=== PATIENT | female | born 1940 | race Caucasian/White ===

== ENCOUNTER 2018-05-29 08:18 | Inpatient (IN) ==
[2018-05-29] MEDS ORDERED: Mupirocin 2% Nasal Oint Topical Syringe EACH NARE SCH (09:00)
[2018-05-29] MEDS ORDERED: Sodium Chlor 0.9% Inj 500 ML IV.CONT ONE (09:00)
[2018-05-29] MEDS ORDERED: Chlorhexidine Gluconate 2% 1 Pack (2 Cloths) TOPICAL SCH (09:00)
[2018-05-29] MEDS ORDERED: ceFAZolin 2 GM Premix Inj 2 GM/50 ML PIGGYBACK IV.SIG SCH (09:00)
[2018-05-29] MEDS ORDERED: Aspirin 325 MG Tablet PO SCH (09:00)
[2018-05-29] MEDS ORDERED: Chlorhexidine Gluconate 2% 1 Pack (2 Cloths) TOPICAL ONE (09:00)
[2018-05-29] MEDS ORDERED: Metoprolol Tartrate 25 MG Tablet PO ONE (09:00)
[2018-05-29] MEDS ORDERED: Protamine Sulfate Inj 50 MG/5 ML Vial ONE (09:38)
[2018-05-29] MEDS ORDERED: Heparin 10,000 UNITS/10 ML Vial (for IV use) ONE (09:38)
--- NOTE | 2018-05-29 10:40 | P.HPCA ---
History of Present Illness Service: Cardiology Primary Care Physician: AISHWARYA MOHAMUD Chief Complaint: Aortic stenosis History of Present Illness: This is a 77-year-old female with past medical history of ventricular arrhythmia and implantable cardioverter defibrillator who is now had progressive symptoms of exertional dyspnea and fatigue. Patient was evaluated by cardiothoracic surgery secondary to diagnosis of severe aortic valve stenosis. Patient was seen and evaluated by Dr. Moreno Delaney interventional cardiology. Due to increased surgical risk, patient was referred for consideration of transcatheter to valve replacement. Patient is now here for elective procedure. Inpatient Certification: I certify that the inpatient services were ordered in accordance with Medicare regulations governing the order. This includes certification that hospital inpatient services are reasonable and necessary and in the case of services not specified as inpatient-only under 42 CFR 419.22(n), that they are appropriately provided as inpatient services in accordance to with the 2-midnight benchmark under 43 CFR 412.3(e) Estimated Total Length of Stay (Days): 2 Plans for Post Hospital Care: Home Review of Systems All other systems reviewed negative except as stated in HPI [facility] - History History Provided By: Patient - Medical History Medical History: Medical History (Last Updated 05/29/18 @ 09:00 by Hawa Viveros) Afib Aortic regurgitation CAD (coronary artery disease) CVA (cerebral vascular accident) HLD (hyperlipidemia) HTN (hypertension) History of cardiac pacemaker Hx of hysterectomy Hypothyroid Left atrial enlargement Lupus (systemic lupus erythematosus) Myocardial infarct, old SOB (shortness of breath) - Surgical History Surgical History: Surgical History (Last Updated 05/29/18 @ 09:00 by Hawa Viveros) Stented coronary artery AICD (automatic cardioverter/defibrillator) present History of open reduction and internal fixation (ORIF) procedure Hx of cardiac catheterization Hx of cataract removal with insertion of prosthetic lens Hx of prior ablation treatment - Tobacco History Second Hand Smoke Exposure: No Smoking Status: Former smoker - Alcohol History How Often Do You Have a Drink Containing Alcohol: Never Medications and Allergies Active Medications: Active Medications Aspirin (Aspirin) 325 mg PO RN [facility] Stop: 06/01/18 08:57 Last Admin: 05/29/18 09:09 Dose: 325 mg Chlorhexidine Gluconate (Chlorhexidine 2% Cloth) 3 pack TOPICAL RN [facility] Stop: 06/01/18 08:57 Cefazolin Sodium/Dextrose (Ancef 2 Gm Premix Inj) 2 gm in 50 mls @ 100 mls/hr IV.SIG ONCE [facility] Stop: 06/01/18 08:57 Sodium Chloride (Ns Inj) 1,000 mls @ 125 mls/hr IV.CONT .Q8H [facility] Lactated Ringer's (Lr 1000 Ml Inj) 1,000 mls @ 30 mls/hr IV.CONT .Q24H ONE Stop: 05/30/18 08:59 Sodium Chloride (Ns Inj) 500 mls @ 30 mls/hr IV.CONT .[id number] ONE Stop: 05/30/18 01:39 Mupirocin (Bactroban 2% Nasal Oint) 1 applicatio EACH NARE RN [facility] Stop: 06/01/18 08:57 Povidone Iodine (Betadine 5% Antisepsis Kit) 1 applicatio TOPICAL RN [facility] Stop: 06/01/18 08:57 Allergies Allergy/AdvReac Type Severity Reaction Status Date / Time ibuprofen Allergy Severe Nausea/Vomi Verified 05/29/18 09:00 ting levothyroxine AdvReac Mild hair loss Verified 05/29/18 09:00 levothyroxine sodium AdvReac Mild hair loss Verified 05/29/18 09:00 Home Medications Medication Instructions Recorded Confirmed Type amiodarone 200 mg PO DAILY 05/21/18 05/28/18 History aspirin 81 mg PO DAILY 05/21/18 05/29/18 History atorvastatin 80 mg PO DAILY 05/21/18 05/28/18 History cholecalciferol (vitamin D3) 5,000 unit PO DAILY 05/21/18 05/28/18 History [Vitamin D3] diphenhydramine-acetaminophen 2 tab PO HS 05/21/18 05/28/18 History [Tylenol PM Extra Strength] furosemide 20 mg PO TID 05/21/18 05/29/18 History potassium chloride [Klor-Con M10] 10 meq PO DAILY 05/21/18 05/28/18 History thyroid (pork) [Shock Thyroid] 90 mg PO DAILY 05/21/18 05/28/18 History docusate sodium [Stool Softener] 200 mg PO HS 05/28/18 05/28/18 History Exam Vital signs: Vital Signs 05/29/18 08:57 Pulse Rate 70 Respiratory Rate 16 Blood Pressure 146/75 H Pulse Oximetry 99 Intake & Output 05/28/18 05/29/18 05/29/18 18:59 06:59 18:59 Weight 80.1 kg Other: Weight On Admission 80.1 kg - Constitutional no acute distress - Routine HEENT Exam Eye: Present: EOMI, PERRL ENT: Present: mucous membranes moist - Routine Neck Exam Absent: JVD - Routine Respiratory Exam Present: CTA bilaterally - Routine Cardiovascular Exam Present: RRR, murmur - Routine Abdominal Exam Present: soft, normoactive bowel sounds - Routine Extremities Exam Absent: edema - Routine Neurological Exam Present: alert, oriented X3, CN II-XII intact. Absent: sensory deficit, motor deficit Results Intake and Output 05/28/18 05/29/18 05/29/18 22:59 06:59 14:59 Other: Weight 80.1 kg Weight On Admission 80.1 kg Patient Weight 05/30/18 06:59 Weight 80.1 kg EKG interpretations - Dysrhythmias Sinus rhythms and dysrhythmias: sinus rhythm - Blocks, axis, hypertrophy, ST abn AV and intraventricular conduction: right bundle branch block (fixed/ intermittent, complete/incomplete) Caprini VTE Risk Assessment Caprini VTE Risk Assessment: Moderate/High Risk (score >= 2) Caprini Risk Assessment Model: Point Value = 1 Point Value = 2 Point Value = 3 Point Value = 5 Age 41-60 Minor surgery BMI > 25 kg/m2 Swollen legs Varicose veins or History of unexplained or recurrent spontaneous Oral contraceptives or hormone replacement Sepsis (< 1 month) Serious lung disease, including pneumonia (< 1 month) Abnormal pulmonary function Acute myocardial infarction Congestive heart failure (< 1 month) History of inflammatory bowel disease Medical patient at bed rest Age 61-74 Arthroscopic surgery Major open surgery (> 45 min) Laparoscopic surgery (> 45 min) Malignancy Confined to bed (> 72 hours) Immobilizing plaster cast Central venous access Age >= 75 History of VTE Family history of VTE Factor V Leiden Prothrombin [id number] Lupus anticoagulant Anticardiolipin antibodies Elevated serum homocysteine Heparin-induced thrombocytopenia Other congenital or acquired thrombophilia Stroke (< 1 month) Elective arthroplasty Hip, pelvis, or leg fracture Acute spinal cord injury (< 1 month) Prophylaxis Regimen: Total Risk Factor Score Risk Level Prophylaxis Regimen 0-1 Low Early ambulation 2 Moderate Order ONE of the following: *Sequential Compression Device (SCD) *Heparin 5000 units SQ BID 3-4 Higher Order ONE of the following medications: *Heparin 5000 units SQ TID *Enoxaparin/Lovenox 40 mg SQ daily (WT < 150 kg, CrCl > 30 mL/min) *Enoxaparin/Lovenox 30 mg SQ daily (WT < 150 kg, CrCl > 10-29 mL/min) *Enoxaparin/Lovenox 30 mg SQ BID (WT < 150 kg, CrCl > 30 mL/min) AND/OR *Sequential Compression Device (SCD) 5 or more Highest Order ONE of the following medications: *Heparin 5000 units SQ TID (Preferred with Epidurals) *Enoxaparin/Lovenox 40 mg SQ daily (WT < 150 kg, CrCl > 30 mL/min) *Enoxaparin/Lovenox 30 mg SQ daily (WT < 150 kg, CrCl > 10-29 mL/min) *Enoxaparin/Lovenox 30 mg SQ BID (WT < 150 kg, CrCl > 30 mL/min) AND *Sequential Compression Device (SCD) Assessment and Plan - Plan Severe aortic valve stenosis Is a 77-year-old female with history of coronary artery disease, pulmonary hypertension, stroke and ventricular tachycardia status post implantable cardioverter defibrillator who is now here for elective transcatheter valve replacement secondary to severe aortic valve stenosis. Referring condominium manager Dr. Leal and Dr. Delaney Preoperative workup: STS score 4.3% [place] [employer] functional class III symptoms BMI 24.1 Frailty score 2/4 Electrocardiogram sinus rhythm right bundle branch block Pulmonary function test shows FEV1 1.12 with a 58% consistent with moderate to severe restrictive lung disease Echocardiogram April 17, 2018 shows JRP check velocity 4.38 m/s, mean gradient 47 mmHg, calculated valve area of 0.46 cm with a ejection fraction of 60% and moderate aortic valve insufficiency Cardiac catheterization shows mild nonobstructive coronary disease Computed tomography angiography performed on May 21, 2018 shows short anus diameter 21.0 mm, long anus diameter 25.7 mm, annual area for 32 mm, sinus of Valsalva 32 mm, sinotubular junction 30.1 mm, left coronary height 7.9 mm, right coronary height 17.2 mm, minimal luminal diameter 5.0 mm on the right and 5.4 mm on the left We will plan for transcatheter valve replacement with a Magallon 23 mm Amina S3 bioprosthetic valve.
[2018-05-29] MEDS ORDERED: Iohexol Inj 350 MG/ML 100 ML Bottle (for RAD Diag) IVCONTRAST ONE (12:38)
--- NOTE | 2018-05-29 12:42 | P.OP ---
Date of procedure: 05/29/18 Anesthesia: GETA Surgeon: Ashely French MD Operation and Findings: PREOPERATIVE DIAGNOSIS: 1. Severe Symptomatic Aortic stenosis. 2. CHF 3. Moderate Aortic Insufficiency 4. Coronary Artery Disease Status Post Stenting POSTOPERATIVE DIAGNOSIS: Same OPERATION PERFORMED: 1. Transcatheter Aortic Valve Replacement (TAVR) with an Magallon 23 mm Amina 3 Tissue Valve. 2. Left Main Coronary Protection 3. Aortogram. 4. Percutaneous right femoral Vein Access and Bilateral Common Femoral Artery Access 5. Perclose closure of left Common Femoral artery. 6. Vascade closure of right Common Femoral artery and vein. 7. Fluoroscopy SURGEON: Ashely French MD CO-SURGEON: Larry Hilton MD ADJUNCT INSTRUCTOR SURGEON: Viet Delaney MD STORE PRODUCT DEMONSTRATOR: MILAD Greenfield MD ANESTHESIA: Moderate sedation PROCEDURE: The risks, benefits, complications, treatment options, and expected outcomes were discussed with the patient. The possibilities of reaction to medication, pulmonary aspiration, perforation of viscus, bleeding, recurrent infection, the need for additional procedures, failure to diagnose a condition, and creating a complication requiring transfusion or operation were discussed with the patient. The patient concurred with the proposed plan, giving informed consent. The site of surgery properly noted/marked. The patient was taken to the hybrid operating room and the procedure verified as Transcatheter Aortic Valve Replacement. A Time Out was held and the above information confirmed. Standard monitoring lines were placed. Moderate sedation anesthesia was induced. The patient was prepped and draped in a sterile fashion. Initially, the right femoral arterial and venous access was acquired using a Seldinger percutaneous technique. The details of this procedure were dictated under separate note by cardiology. Once a pigtail was positioned in the aortic annulus and a temporary transvenous pacemaker wire was placed in the right ventricular apex and tested, the left femoral artery was accessed using a needle followed by a guidewire under fluoroscopic guidance. The patient was heparinized and 2 Perclose devices deployed for later closure. Serial dilators were used to dilate the left femoral artery to 14 [place] caliber. The Magallon sheath was then inserted into the external iliac artery up to the distal abdominal aorta. Arch aortography was performed to define the implant view. Given the low left main coronary height, an intracoronary wire with a stent was placed into the left main coronary artery for protection which were later removed following confirmation of adequate blood flow into the left main coronary artery. A 23 Magallon Amina 3 transcatheter aortic valve was then positioned in the annulus and deployed with the patient being rapidly paced. Following deployment, the valve apparatus was withdrawn and arch aortography and TTE were performed to assess the valve. The valve had trace perivalvular leak. Gradients were then measured and the sheath was removed while securing the Perclose sutures for hemostasis. Protamine was administered. The right arterial and Venous access sites were closed using the Vascade device. Sterile dressings were placed. At the end of the operation, all sponge, instruments, and needle counts were correct. The patient was transferred to the CVICU in stable condition. Findings: Trace PVL Implants: 23 Amina 3 tissue valve Complications: None Disposition: to CVICU in stable condition
[2018-05-29] MEDS ORDERED: hydrALAZINE HCl Inj 20 MG/ML Vial IV.PUSH PRN (12:48)
--- NOTE | 2018-05-29 12:53 | P.OP ---
- Preoperative Diagnosis (1) Acute on chronic diastolic (congestive) heart failure (2) Severe aortic stenosis Date of procedure: 05/29/18 Procedure: forming machine operator: Larry Hilton MD Primary Surgeon: Ashely French MD Procedures performed: 1. Fluoroscopy with interpretation 2. Left heart catheterization 3. Ascending aortography 4. Temporary transvenous pacemaker placement 5. Transcatheter aortic valve replacement with Magallon 23 mm Amina S3 bioprosthetic valve Methods: Risks, benefits, and alternatives were discussed with the patient. Patient understood and consented to the procedure. Patient was brought into the operating room and placed on the operating table. Bilateral groins and chest were prepped and draped. Under fluoroscopic guidance the right common femoral artery was cannulated and a 5 [place] 11 cm sheath was placed without difficulty. Left femoral vein was accessed and a 5 [place] 11 cm sheath was placed without difficulty. Left common femoral artery was cannulated under fluoroscopic and angiographic guidance through using a micropuncture sheath. Angiography confirmed appropriate placement. An 8 [place] sheath was placed without difficulty. 2 Perclose devices were deployed in a pre-close manner. The 14 [place] Magallon sheath was then advanced up over the wire through the iliac system without difficulty into the descending abdominal aorta. Temporary transvenous pacemaker placement: A 5 [place] balloontipped temporary transvenous pacemaker was advanced under fluoroscopic guidance to the right internal jugular sheath to the right ventricular apex. Appropriate pacing and capture was confirmed and utilized during the procedure for rapid ventricular pacing. Ascending aortography: Ascending aortography was performed using an 5 [place] angled pigtail catheter advanced to the left common femoral arterial sheath to the level of the descending aorta and its the right coronary cusp. Ascending aortography was performed which showed 3 leaflets and parallax view. The descending aorta was not significantly dilated. Left heart catheterization: A 5 [place] AL-1 catheter was advanced through the right common femoral sheath to the level of the descending aorta a 0.035 inch Amplatz straight tip Super Stiff wire was then advanced across the aortic valve with some difficulty. The AL-1 catheter was advanced into the left ventricle. A 260 cm 0.035 inch standard J-wire was then advanced to the left ventricular apex and the AL-1 catheter removed. A 5 [place] angled pigtail catheter was then advanced over the J-wire into the left ventricular apex and the J-wire removed. A 0.035 inch 260 cm [employer] Confida wire was then advanced to the left ventricular apex through the pigtail catheter, and the pigtail catheter removed. Transcatheter aortic valve replacement: A 26 mm Magallon Amina S3 was advanced through the right common femoral sheath to the level of the descending aorta. The balloon was pulled back into the stent valve. The device was then advanced up and over the arch to the level of the ascending aorta and across the aortic valve. The pusher component was pulled back. Appropriate positioning was confirmed with a sending aortography and fluoroscopy. Under rapid ventricular pacing, the transcatheter aortic valve was slowly deployed. Immediate post deployment transesophageal echocardiogram revealed appropriate positioning. There was no perivalvular leak or pericardial effusion. Patient tolerated the procedure with good hemodynamic stability. The delivery sheath was then removed. The right common femoral arterial sheath was removed and 2 Perclose devices deployed with good hemostasis. The left common femoral artery and venous sheaths were also removed and 2 Vascade closure devices were deployed with good hemostasis. Post valve deployment intraoperative transesophageal echocardiogram findings: 1. Post implant mean aortic valve gradient 5 mmHg 2. Post implant peak velocity 1.76 m/seconds 3. Aortic valve insufficiency - trivial paravalvular leak Conclusions: 1. Severe campo aortic valve stenosis 2. Successful transcatheter aortic valve replacement with a bioprosthetic 23 mm Magallon Amina S3 valve Plan: We will monitor the patient closely for any immediate postprocedural complications. We will obtain a limited transthoracic echocardiogram. We will initiate antiplatelet therapy with aspirin and Plavix. Patient be transferred to the cardiovascular intensive care unit for further monitoring Surgeon: Larry Hilton MD
[2018-05-29] MEDS ORDERED: Sod Chloride 0.9% Inj 1,000 ML IV.CONT SCH (13:00)
[2018-05-29] MEDS ORDERED: fentaNYL Citrate Inj 250 MCG/5 ML Ampul ONE (13:00)
[2018-05-29] MEDS: Sod Chloride 0.9% Inj 1,000 ML IV.CONT SCH ×2 (13:18→16:23)
[2018-05-29] MEDS ORDERED: Iohexol 350 MG/ML 50 ML Vial (for Cath Lab) IVCONTRAST ONE (13:56)
--- NOTE | 2018-05-29 15:33 | P.CONCC ---
History of Present Illness Service: Critical care Consult date: 05/29/18 Requesting Physician: Larry Hilton Reason for Consult: s/p TAVR Primary Care Provider: AISHWARYA MOHAMUD Chief Complaint: Aortic stenosis History of Present Illness: Patient is a 77-year-old female with past medical history of ventricular arrhythmia, history of AICD insertion, atrial fibrillation, severe aortic stenosis, aortic regurgitation, coronary artery doses, history of CVA, dyslipidemia, hypertension, hypothyroidism, history of SLE, coronary artery disease who was referred to Dr. Hilton for TAVR for severe aortic stenosis which was symptomatic. Deemed high risk for open aortic valve replacement. Patient underwent successful transcatheter aortic valve replacement with a bioprosthetic 23 mm Magallon Amina S3 valve. Post valve deployment BOO showed mean aortic valve gradient 5 mmHg, peak velocity 1.76 m/seconds. There was trace paravalvular leak I evaluate the patient in CVICU. Hemodynamically stable. No acute distress. Appears to be in good spirits. Review of Systems All other systems reviewed negative except as stated in HPI [facility] - History History Provided By: Patient - Medical History Medical History: Medical History (Last Reviewed 05/29/18 @ 15:38 by Lacie Bennett MD) Afib Aortic regurgitation CAD (coronary artery disease) CVA (cerebral vascular accident) HLD (hyperlipidemia) HTN (hypertension) History of cardiac pacemaker Hx of hysterectomy Hypothyroid Left atrial enlargement Lupus (systemic lupus erythematosus) Myocardial infarct, old SOB (shortness of breath) - Surgical History Surgical History: Surgical History (Last Reviewed 05/29/18 @ 15:38 by Lacie Bennett MD) Stented coronary artery AICD (automatic cardioverter/defibrillator) present History of open reduction and internal fixation (ORIF) procedure Hx of cardiac catheterization Hx of cataract removal with insertion of prosthetic lens Hx of prior ablation treatment - Tobacco History Second Hand Smoke Exposure: No Smoking Status: Former smoker - Alcohol History How Often Do You Have a Drink Containing Alcohol: Never Medications and Allergies Active Medications: Active Medications Aspirin (Aspirin) 325 mg PO SLOT MACHINE [facility]CHAN[facility] Stop: 06/01/18 08:57 Last Admin: 05/29/18 09:09 Dose: 325 mg Aspirin (Aspirin Chew) 81 mg PO DAILY [facility] Chlorhexidine Gluconate (Chlorhexidine 2% Cloth) 3 pack TOPICAL SLOT MACHINE MECHANIC [facility] Stop: 06/01/18 08:57 Clonidine HCl (Catapres) 0.2 mg PO Q6H PRN PRN Reason: SBP > 160 mmHg Clopidogrel Bisulfate (Plavix) 75 mg PO DAILY [facility] Ferrous Sulfate (Ferosul) 325 mg PO DAILY [facility] Hydralazine HCl (Apresoline Inj) 10 mg IV.PUSH Q30M PRN PRN Reason: SBP > 160 mmHg Cefazolin Sodium/Dextrose (Ancef 2 Gm Premix Inj) 2 gm in 50 mls @ 100 mls/hr IV.SIG ONCE [facility] Stop: 06/01/18 08:57 Last Infusion: 05/29/18 11:18 Dose: Infused Sodium Chloride (Ns Inj) 1,000 mls @ 125 mls/hr IV.CONT .Q8H [facility] Last Admin: 05/29/18 13:18 Dose: Not Given Lactated Ringer's (Lr 1000 Ml Inj) 1,000 mls @ 30 mls/hr IV.CONT .Q24H ONE Stop: 05/30/18 08:59 Last Admin: 05/29/18 13:18 Dose: Not Given Sodium Chloride (Ns Inj) 500 mls @ 30 mls/hr IV.CONT .[id number] ONE Stop: 05/30/18 01:39 Last Admin: 05/29/18 13:19 Dose: Not Given Sodium Chloride (Ns Inj) 1,000 mls @ 125 mls/hr IV.CONT .Q8H [facility] Stop: 05/29/18 16:59 Last Admin: 05/29/18 13:20 Dose: 125 mls/hr Mupirocin (Bactroban 2% Nasal Oint) 1 applicatio EACH NARE SLOT MACHINE MECHANIC [facility] Stop: 06/01/18 08:57 Ondansetron HCl (Zofran Inj) 4 mg IV.PUSH ONCE PRN PRN Reason: NAUSEA OR VOMITING Povidone Iodine (Betadine 5% Antisepsis Kit) 1 applicatio TOPICAL SLOT MACHINE MECHANIC [facility] Stop: 06/01/18 08:57 Allergies Allergy/AdvReac Type Severity Reaction Status Date / Time ibuprofen Allergy Severe Nausea/Vomi Verified 05/29/18 09:00 ting levothyroxine AdvReac Mild hair loss Verified 05/29/18 09:00 levothyroxine sodium AdvReac Mild hair loss Verified 05/29/18 09:00 Home Medications Medication Instructions Recorded Confirmed Type amiodarone 200 mg PO DAILY 05/21/18 05/28/18 History aspirin 81 mg PO DAILY 05/21/18 05/29/18 History atorvastatin 80 mg PO DAILY 05/21/18 05/28/18 History cholecalciferol (vitamin D3) 5,000 unit PO DAILY 05/21/18 05/28/18 History [Vitamin D3] diphenhydramine-acetaminophen 2 tab PO HS 05/21/18 05/28/18 History [Tylenol PM Extra Strength] furosemide 20 mg PO TID 05/21/18 05/29/18 History potassium chloride [Klor-Con M10] 10 meq PO DAILY 05/21/18 05/28/18 History thyroid (pork) [[place] Thyroid] 90 mg PO DAILY 05/21/18 05/28/18 History docusate sodium [Stool Softener] 200 mg PO HS 05/28/18 05/28/18 History Physical Exam Vital signs: Vital Signs 05/29/18 08:57 05/29/18 13:00 05/29/18 15:00 Temperature 97.4 F L 97.6 F Pulse Rate 70 69 69 Respiratory Rate 16 16 16 Blood Pressure 146/75 H 122/68 148/78 H Pulse Oximetry 99 99 96 Intake & Output 05/28/18 05/29/18 05/29/18 18:59 06:59 18:59 Intake Total 650 / 650 Output Total 50 / 50 Balance 600 / 600 Weight 80.1 kg Intake: IV 50 / 50 Ancef 2 GM Premix Inj 2 gm In 50 / 50 50 ml @ 100 mls/hr IV.SIG ONCE [facility] Rx#:[id number] Anesthesia Amount 600 / 600 Output: Estimated Blood Loss 50 / 50 Other: Weight On Admission 80.1 kg Narrative: - Constitutional no acute distress. Lying in bed - Routine HEENT Exam EOMI, PERRL. Mucous membranes are moist - Routine Neck Exam No JVD - Routine Respiratory Exam CTA bilaterally. No wheezes or crackles - Routine Cardiovascular Exam S1-S2 heard normally. No murmurs at this time - Routine Abdominal Exam soft, normoactive bowel sounds - Routine Extremities Exam Pedal pulses felt by Doppler. No groin hematoma - Routine Neurological Exam Alert, oriented X3, No sensory deficit, motor deficit Septic Shock Reassessment Septic shock perfusion: reassessment completed Assessment and Plan - Assessment and Plan Plan: ASSESSMENT Status post TAVR for severe symptomatic aortic stenosis Ventricular arrhythmia status post AICD History of atrial fibrillation Coronary artery disease History of CVA Dyslipidemia Hypertension Hypothyroidism History of SLE PLAN: NEURO: -Morphine if needed for pain control RESP: -Aggressive pulmonary toilet CV: -Normal saline IV fluids, resume home antihypertensives, amiodarone as appropriate -Post TAVR management per Dr. Hilton -Loading dose of aspirin given continue 81 mg daily -Loading dose of Plavix 600 mg followed by 75 mg daily GI: -Cardiac diet : -Monitor renal function closely. ID: -Perioperative antibiotics per cardiology HEME: -Monitor CBC, coags ENDO: -Electrolyte replacement per protocol -Restart thyroid replacement in 24 hours LINES: -Utilize peripheral IVs, central line if needed Level 3 Code Status: Full
--- NOTE | 2018-05-29 19:55 | ECG ---
Date Performed: 05/29/2018 Time Performed: 13:27:56 PTAGE: 77 years EKG: Sinus rhythm with 1st degree A-V block Demand atrial pacing Prolonged QT interval Right bundle branch block Infer ior/lateral ST-T changes are nonspecific Since previous tracing, no significant change noted Abnormal ECG PREVIOUS TRACING : 05/29/2018 08.42 DOCTOR: Aracelis Cook Interpretating Date/Time 05/29/2018 19:54:00
--- NOTE | 2018-05-29 22:35 | ECG ---
Date Performed: 05/29/2018 Time Performed: 08:42:24 PTAGE: 77 years EKG: Sinus rhythm with 1st degree A-V block. Right bundle branch block Inferior/lateral ST-T changes are nonspecific A bnormal ECG PREVIOUS TRACING : 05/21/2018 09.14 DOCTOR: Dawood August Interpretating Date/Time 05/29/2018 22:34:37
[2018-05-29 22:45] VITALS: O2SAT 95
[2018-05-30 04:47] LABS: Hematocrit 33.8 % (35.0-46.0); Hemoglobin 11.1 gm/dL (11.6-15.3); Mean Corpuscular HGB Conc 32.9 % (32.0-36.0); Mean Corpuscular Hemoglobin 29.3 pg (27.0-34.0); Mean Corpuscular Volume 89.2 fL (80.0-100.0); Mean Platelet Volume 9.1 fL (7.0-11.0); Platelet Count 141 th/mm3 (150-450); Red Blood Count 3.79 mil/mm3 (4.00-5.30); Red Cell Distribution Width 14.7 % (11.6-17.2); White Blood Count 10.1 th/mm3 (4.0-11.0)
[2018-05-30 05:02] LABS: Anion Gap 7 meq/L (5-15); Aspartate Aminotransferase 24 U/L (15-37); Blood Urea Nitrogen 15 mg/dL (7-18); Calcium 8.7 mg/dL (8.5-10.1); Carbon Dioxide 29.2 meq/L (21.0-32.0); Chloride 105 meq/L (98-107); Glomerular Filtration Rate 70 mL/min (>89); Glucose,Random 129 mg/dL (74-106); Potassium 3.6 meq/L (3.5-5.1); Sodium 141 meq/L (136-145)
[2018-05-30 05:03] LABS: Alanine Aminotransferase 20 U/L (10-53)
[2018-05-30 05:05] LABS: Alkaline Phosphatase 106 U/L (45-117); Total Protein 6.4 g/dL (6.4-8.2)
--- NOTE | 2018-05-30 07:59 | P.PNCV ---
- Note Subjective/Hospital Course: 05/29 OPERATION PERFORMED: 1. Transcatheter Aortic Valve Replacement (TAVR) with an [place] 23 mm Amina 3 Tissue Valve. 2. Left Main Coronary Protection 3. Aortogram. 4. Percutaneous right femoral Vein Access and Bilateral Common Femoral Artery Access 5. Perclose closure of left Common Femoral artery. 6. Vascade closure of right Common Femoral artery and vein. 7. Fluoroscopy 05/30 Clinically and hemodynamically stable Groins soft Anticipate discharge home later today Objective: Vital Signs - 24 hr 05/29/18 08:57 05/29/18 13:00 05/29/18 15:00 Temperature 97.4 F L 97.6 F Pulse Rate 70 69 69 Respiratory Rate 16 16 16 Blood Pressure 146/75 H 122/68 148/78 H Pulse Oximetry 99 99 96 05/29/18 19:00 05/29/18 22:00 05/29/18 23:00 Temperature 97.6 F 97.6 F Pulse Rate 69 69 69 Respiratory Rate 16 16 Blood Pressure 147/60 H Pulse Oximetry 95 95 05/30/18 03:00 05/30/18 03:42 05/30/18 07:00 Temperature 97.7 F Pulse Rate 69 69 69 Respiratory Rate 16 Blood Pressure Pulse Oximetry 95 05/30/18 07:38 Temperature 98 F Pulse Rate 71 Respiratory Rate 18 Blood Pressure 135/95 H Pulse Oximetry 95 Labs: Laboratory Results - last 12 hr 05/30/18 05/30/18 04:00 04:00 WBC 10.1 RBC 3.79 L Hgb 11.1 L Hct 33.8 L MCV 89.2 MCH 29.3 MCHC 32.9 RDW 14.7 Plt Count 141 L MPV 9.1 Sodium 141 Potassium 3.6 Chloride 105 Carbon Dioxide 29.2 Anion Gap 7 BUN 15 Creatinine 0.79 Estimated GFR 70 L Random Glucose 129 H Calcium 8.7 Total Bilirubin 0.5 AST 24 ALT 20 Alkaline Phosphatase 106 Total Protein 6.4 Albumin 3.0 L Result Diagrams: 05/30/18 04:00 05/30/18 04:00
--- NOTE | 2018-05-30 08:12 | P.DS ---
Date of admission: 05/29/18 08:18 Primary care physician: AISHWARYA MOHAMUD Brief History from admission: This is a 77-year-old female with past medical history of ventricular arrhythmia and implantable cardioverter defibrillator who is now had progressive symptoms of exertional dyspnea and fatigue. Patient was evaluated by cardiothoracic surgery secondary to diagnosis of severe aortic valve stenosis. Patient was seen and evaluated by Dr. Moreno Delaney interventional cardiology. Due to increased surgical risk, patient was referred for consideration of transcatheter to valve replacement. Patient is now here for elective procedure. DS: Diagnosis - Discharge Diagnosis (1) Severe aortic stenosis Status: Acute (2) Pulmonary hypertension Status: Acute (3) Acute on chronic diastolic (congestive) heart failure Status: Acute DS: Medications - Discharge Medications Prescriptions: clopidogrel [Plavix] 75 mg PO DAILY #30 tab ferrous sulfate [FeroSul] 325 mg PO DAILY #30 tab DS: Summary Hospital Course: The patient had an uneventful hospital course overnight. - Time Spent with Patient Total time spent providing and/or coordinating discharge services: Greater than 30 minutes Exam Vital signs: Vital Signs 05/29/18 08:57 05/29/18 13:00 05/29/18 15:00 Temperature 97.4 F L 97.6 F Pulse Rate 70 69 69 Respiratory Rate 16 16 16 Blood Pressure 146/75 H 122/68 148/78 H Pulse Oximetry 99 99 96 05/29/18 19:00 05/29/18 22:00 05/29/18 23:00 Temperature 97.6 F 97.6 F Pulse Rate 69 69 69 Respiratory Rate 16 16 Blood Pressure 147/60 H Pulse Oximetry 95 95 05/30/18 03:00 05/30/18 03:42 05/30/18 07:00 Temperature 97.7 F Pulse Rate 69 69 69 Respiratory Rate 16 Blood Pressure Pulse Oximetry 95 05/30/18 07:38 Temperature 98 F Pulse Rate 71 Respiratory Rate 18 Blood Pressure 135/95 H Pulse Oximetry 95 Intake & Output 05/29/18 05/30/18 05/30/18 18:59 06:59 18:59 Intake Total 1390 / 1390 360 / 360 Output Total 750 / 750 700 / 700 Balance 640 / 640 -340 / -340 Weight 80.1 kg Intake: IV 550 / 550 NS Inj 1,000 ML @ 125 mls/hr IV 500 / 500 .CONT .Q8H TERESO Rx#:[id number] Ancef 2 GM Premix Inj 2 gm In 50 / 50 50 ml @ 100 mls/hr IV.SIG ONCE [facility] Rx#:[id number] Oral 240 / 240 360 / 360 Anesthesia Amount 600 / 600 Output: Urine 700 / 700 700 / 700 Estimated Blood Loss 50 / 50 Other: Date of Last Bowel Movement 05/27/18 Weight On Admission 80.1 kg - Constitutional no acute distress - Routine HEENT Exam Head: Present: normocephalic, atraumatic Eye: Present: EOMI, PERRL ENT: Present: mucous membranes moist - Routine Neck Exam Absent: JVD - Routine Respiratory Exam Present: CTA bilaterally - Routine Cardiovascular Exam Present: RRR. Absent: murmur - Routine Abdominal Exam Present: soft, normoactive bowel sounds - Routine Extremities Exam Absent: edema - Routine Skin Exam Absent: erythema - Routine Neurological Exam Present: alert, oriented X3, CN II-XII intact. Absent: sensory deficit, motor deficit Results Procedures completed during hospitalization: Transcatheter aortic valve replacement Labs on day of discharge: Labs from last 24 hours 05/30/18 05/30/18 05/29/18 04:00 04:00 08:55 WBC 10.1 RBC 3.79 L Hgb 11.1 L Hct 33.8 L MCV 89.2 MCH 29.3 MCHC 32.9 RDW 14.7 Plt Count 141 L MPV 9.1 Sodium 141 Potassium 3.6 Chloride 105 Carbon Dioxide 29.2 Anion Gap 7 BUN 15 Creatinine 0.79 Estimated GFR 70 L Random Glucose 129 H Calcium 8.7 Total Bilirubin 0.5 AST 24 ALT 20 Alkaline Phosphatase 106 Total Protein 6.4 Albumin 3.0 L Blood Type A Positive Antibody Screen Negative MTS Gel Crossmatch See Detail Discharge Plan - Discharge Disposition Patient Disposition: 01 Discharge Home - Discharge Condition Condition: Good - Discharge Order Discharge Orders: Discharge Order (Routine); Ordered 05/30/18 Ordered By: Larry Hilton Cardiology Clear for Discharge (Routine); Ordered 05/30/18 Ordered By: Larry Hilton - Discharge Details Anticipated Discharge Date: 05/30/18 - Physicians Team Attending Provider: Larry Hilton Other Providers: Heidi Rico MD ; Lacie Bennett MD - Rxs /Orders / Referrals /Forms Prescriptions: New clopidogrel [Plavix] 75 mg Tablet 75 mg PO DAILY Qty: 30 RF: 3 ferrous sulfate [FeroSul] 325 mg (65 mg iron) Tablet 325 mg PO DAILY Qty: 30 RF: 3 Continue amiodarone 200 mg Tablet 200 mg PO DAILY aspirin 81 mg Tablet,Delayed Release (Dr/Ec) 81 mg PO DAILY atorvastatin 80 mg Tablet 80 mg PO DAILY cholecalciferol (vitamin D3) [Vitamin D3] 5,000 unit Tablet 5,000 unit PO DAILY diphenhydramine-acetaminophen [Tylenol PM Extra Strength] 25-500 mg Tablet 2 tab PO HS docusate sodium [Stool Softener] 100 mg Capsule 200 mg PO HS potassium chloride [Klor-Con M10] 10 mEq Tablet,Er Particles/Crystals 10 meq PO DAILY thyroid (pork) [[place] Thyroid] 60 mg Tablet 90 mg PO DAILY Changed furosemide 20 mg Tablet 20 mg PO QAM Qty: 0 RF: 0 Changed from: 20 mg oral three times a day Referrals: AISHWARYA MOHAMUD [Other] - See Instructions - Discharge Instructions Patient Printed Instructions: Transcatheter Aortic Valve Replacement (DC) Additional Instructions: Restart coumadin this evening. Continue taking PLAVIX until INR is 2 or more. Have INR checked in your normal location as discussed on Sunday. Please schedule appt with primary care provider within 1-2 weeks. 30 day echocardiogram 06/27/18 1130am [facility] [address] [place] [address] 30 day TAVR follow up appt Dr Guerra 07/04/18 145pm [facility] [address] [place] [address] 1 year echocardiogram 05/29/19 830am [facility] [address] [place] [address] 1 year TAVR follow up 06/04/[address] Guerra [facility] [address] [place] [address]
[2018-05-30] MEDS ORDERED: Ferrous Sulfate 325 MG Tablet PO SCH (09:00)
--- NOTE | 2018-05-30 10:44 | ECHRPT ---
Indication: HEART FAILURE CONCLUSIONS This is a limited study for a S/P TAVR evaluation. Normal left ventricular size. Mild concentric left ventricular hypertrophy. The left ventricular systolic function is grossly normal on limited imaging. Status-post percutaneous aortic valve replacement. Aortic valve mean gradient is 10 mmHg. BP: / HR: Rhythm: Sinus MEASUREMENTS (Male / Female) Normal Values Technical Quality:Fair 2D ECHO LV Diastolic Diameter PLAX 4.0 cm 4.2 - 5.9 / 3.9 - 5.3 cm LV Systolic Diameter PLAX 2.5 cm IVS Diastolic Thickness 1.1 cm 0.6 - 1.0 / 0.6 - 0.9 cm LVPW Diastolic Thickness 1.1 cm 0.6 - 1.0 / 0.6 - 0.9 cm LV Relative Wall Thickness 0.6 RV Internal Dim ED PLAX 2.8 cm LVOT Diameter 1.6 cm Aortic Root Diameter 2.3 cm LA Systolic Diameter LX 3.7 cm 3.0 - 4.0 / 2.7 - 3.8 cm DOPPLER AV Peak Velocity 242.0 cm/s AV Peak Gradient 23.4 mmHg AV Mean Gradient 10.0 mmHg AV Velocity Time Integral 41.8 cm TR Peak Velocity 385.0 cm/s TR Peak Gradient 59.3 mmHg Right Atrial Pressure 10.0 mmHg Pulmonary Artery Systolic Pressu 69.3 mmHg Right Ventricular Systolic Press 69.3 mmHg FINDINGS LEFT VENTRICLE Normal left ventricular size. Mild concentric left ventricular hypertrophy. The left ventricular systolic function is grossly normal on limited imaging. RIGHT VENTRICLE Normal right ventricular size and systolic function. AORTIC VALVE Status-post percutaneous aortic valve replacement. Aortic valve mean gradient is 10 mmHg. PERICARDIUM No pericardial effusion. Larry Hilton MD, FACC (Electronically Signed) Final Date:30 May 2018 10:43
--- NOTE | 2018-05-30 10:52 | ECHRPT ---
Indication: CONCLUSIONS Normal left ventricular size. The left ventricular systolic function is normal with an estimated ejection fraction in the range of 55-60%. The left atrial size is mildly dilated. The right atrial size is mildly dilated. Trileaflet aortic valve. Aortic valve sclerosis is present. Diffuse calcification of the aortic valve. Severe aortic valve regurgitation. status post sofie-operative transcatheter aortic valve replacement. BP: / HR: Rhythm: Technical Quality: Medications Complications Proc. Components FINDINGS LEFT VENTRICLE Normal left ventricular size. The left ventricular systolic function is normal with an estimated ejection fraction in the range of 55-60%. RIGHT VENTRICLE Normal right ventricular size and systolic function. LEFT ATRIUM The left atrial size is mildly dilated. RIGHT ATRIUM The right atrial size is mildly dilated. ATRIAL SEPTUM Normal atrial septal thickness without atrial level shunting by limited color doppler interrogation. AORTA The aortic root and proximal ascending aorta are normal in size on limited imaging. MITRAL VALVE Structurally normal mitral valve. No mitral valve stenosis or regurgitation. AORTIC VALVE Trileaflet aortic valve. Aortic valve sclerosis is present. Diffuse calcification of the aortic valve. Severe aortic valve regurgitation. status post sofie-operative transcatheter aortic valve replacement TRICUSPID VALVE Structurally normal tricuspid valve. No tricuspid valve stenosis or regurgitation. VESSELS The inferior vena cava is normal in size. PULMONARY VALVE The pulmonary valve is not well visualized. PERICADIUM No pericardial effusion. Larry Hilton MD, FACC (Electronically Signed) Final Date:30 May 2018 10:51
[2018-05-30 11:07] VITALS: PULSE 69
[2018-05-30 11:14] VITALS: BP 144/65; RESP 16; TEMP 98.6
--- NOTE | 2018-05-30 16:02 | ECG ---
Date Performed: 05/30/2018 Time Performed: 04:08:34 PTAGE: 77 years EKG: Atrial pacing. Right bundle branch block Inferior/lateral ST-T changes are nonspecific Sinc e previous tracing, no significant change noted Abnormal ECG PREVIOUS TRACING : 05/29/2018 13.27 DOCTOR: Aracelis Cook Interpretating Date/Time 05/30/2018 16:00:24
== END 2018-05-30 16:00 | disposition home or self-care (01) | DRG 266 ==
LOC: HDIC 08:18 → HCVI 09:46 → HDIC 09:50 → HCVI 13:06
PROVIDERS: ADMIT Internal Medicine; ATTEND Internal Medicine
PROC: TAVRHYB (ICD-10-PCS; 2018-05-29 11:30)
CPT/HCPCS: 33210; 33361; 80053; 85002; 85027; 86850; 86900; 86901; 86923; 93005; 93308; 93312; 93320; 93325; 93454; 94150; 97162; 97530; A4646; C1760; C1769; C1887; C1893; G0168; G0269; J0690; J1644; J1940; J2250; J2720; J3010; J7030; Q9950; Q9965; Q9967